=== PATIENT | female | born 2000 | race Caucasian/White ===

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

== ENCOUNTER 2022-03-18 23:37 | Emergency (ER) | payer OTHER, MEDICAID ==
[2022-03-19 01:00] VITALS: BP 111/74; PULSE 74
== END 2022-03-19 02:54 | disposition home or self-care (01) ==
LOC: DL.ED 23:37
DX: S52.501A Unspecified fracture of the lower end of right radius, initial encounter for closed fracture (principal); V40.5XXA Car driver injured in collision with pedestrian or animal in traffic accident, initial encounter; Y92.410 Unspecified street and highway as the place of occurrence of the external cause
CPT/HCPCS: 29125; 73100-RT; 99284

== ENCOUNTER 2022-11-20 18:15 | Emergency (ER) | payer BC, MEDICAID, OTHER ==
[2022-11-20 18:35] LABS: APPEARANCE,URINE SLIGHTLY CLOUDY (CLEAR); BILIRUBIN,URINE NEGATIVE (NEGATIVE); COLOR,URINE YELLOW (YELLOW); GLUCOSE,URINE NEGATIVE (NEGATIVE); KETONES,URINE NEGATIVE (NEGATIVE); LEUKOCYTE ESTERASE,URINE TRACE (NEGATIVE); NITRITE,URINE POSITIVE (NEGATIVE); OCCULT BLOOD,URINE TRACE-INTACT (NEGATIVE); PH,URINE 8.5 (5.0-9.0); PROTEIN,URINE NEGATIVE (NEGATIVE); UROBILINOGEN,URINE 0.2 mg/dL (0.2-1.0)
[2022-11-20] MEDS ORDERED: Take Home: Nitrofurantoin Monohydrate/Macrocrystalline 100 MG, 6 Cap Pack PO ONE (18:50)
[2022-11-20 18:51] LABS: AMORPHOUS SEDIMENT,URINE FEW /HPF (NOT SEEN); BACTERIA,URINE MODERATE /HPF (0-FEW/HPF); EPITHELIAL CELLS,URINE FEW /HPF (NOT SEEN); RBC,URINE 0-5 /HPF (0-5)
[2022-11-20 19:11] VITALS: BP 108/62; PULSE 68
== END 2022-11-20 19:07 | disposition home or self-care (01) ==
LOC: DL.ED 18:15
DX: N39.0 Urinary tract infection, site not specified (principal)
CPT/HCPCS: 81001; 87086; 99283; A9270-GY

== ENCOUNTER 2023-06-25 23:00 | Emergency (ER) | payer OTHER ==
[2023-06-25 23:22] LABS: APPEARANCE,URINE CLOUDY (CLEAR); BILIRUBIN,URINE NEGATIVE (NEGATIVE); COLOR,URINE DARK YELLOW (YELLOW); GLUCOSE,URINE NEGATIVE (NEGATIVE); KETONES,URINE NEGATIVE (NEGATIVE); LEUKOCYTE ESTERASE,URINE NEGATIVE (NEGATIVE); NITRITE,URINE NEGATIVE (NEGATIVE); OCCULT BLOOD,URINE MODERATE (NEGATIVE); PROTEIN,URINE 100 (NEGATIVE)
[2023-06-25 23:34] LABS: AMORPHOUS SEDIMENT,URINE MODERATE /HPF (NOT SEEN); BACTERIA,URINE MODERATE /HPF (0-FEW/HPF); EPITHELIAL CELLS,URINE MANY /HPF (NOT SEEN); MUCUS,URINE MODERATE /LPF (NOT SEEN); RBC,URINE 0-5 /HPF (0-5)
[2023-06-26 00:24] VITALS: BP 113/72; PULSE 74
[2023-06-26] MEDS: Nitrofurantoin Monohydrate/Macrocrystalline 100 MG Cap PO ONE (00:40)
== END 2023-06-26 00:46 | disposition home or self-care (01) ==
LOC: DL.ED 23:00
DX: N30.00 Acute cystitis without hematuria (principal); Z79.899 Other long term (current) drug therapy
CPT/HCPCS: 81001; 99283; A9270

== ENCOUNTER 2024-06-09 18:22 | Emergency (ER) | payer SELFPAY ==
[2024-06-09 19:26] VITALS: BP 114/76; PULSE 69
[2024-06-09 19:33] LABS: APPEARANCE,URINE SLIGHTLY CLOUDY (CLEAR); BILIRUBIN,URINE NEGATIVE (NEGATIVE); GLUCOSE,URINE 100 (NEGATIVE); KETONES,URINE NEGATIVE (NEGATIVE); LEUKOCYTE ESTERASE,URINE SMALL (NEGATIVE); NITRITE,URINE POSITIVE (NEGATIVE); OCCULT BLOOD,URINE TRACE-INTACT (NEGATIVE); PH,URINE 6.5 (5.0-9.0); PROTEIN,URINE 100 (NEGATIVE)
[2024-06-09 19:34] LABS: COLOR,URINE ORANGE (YELLOW)
[2024-06-09 19:52] LABS: BACTERIA,URINE MODERATE /HPF (0-FEW/HPF); EPITHELIAL CELLS,URINE MODERATE /HPF (NOT SEEN); MUCUS,URINE FEW /LPF (NOT SEEN); WBC,URINE SEMI-PACKED /HPF (0-5/HPF); YEAST,URINE FEW /HPF (NOT SEEN)
[2024-06-09] MEDS: Take Home: Lidocaine 2% Viscous Solution 15 ML UD, 2 Cup Pack PO ONE (20:40)
[2024-06-09] MEDS: Amoxicillin/Clavulanate K 875-125 MG Tab PO ONE (20:40)
[2024-06-09] MEDS: Take Home: traMADol 50 MG, 4 Tab Pack PO ONE (20:40)
== END 2024-06-09 20:48 | disposition home or self-care (01) ==
LOC: DL.ED 18:22
DX: K04.7 Periapical abscess without sinus (principal); N39.0 Urinary tract infection, site not specified; F17.210 Nicotine dependence, cigarettes, uncomplicated; Z79.899 Other long term (current) drug therapy
CPT/HCPCS: 81001; 87086; 99283; 99284; A9270-GY